=== PATIENT | female | born 2005 | race Caucasian/White ===

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

== ENCOUNTER 2024-01-01 12:44 | Outpatient (CLI) | payer MEDICAID ==
[2024-01-01 14:06] LABS: HCT - HEMATOCRIT 34.8 % (37.0-47.0); HGB - HEMOGLOBIN 11.2 g/dL (12.0-16.0); MEAN CORPUSCULAR HEMOGLOBIN 29.4 pg (27.0-31.0); MEAN CORPUSCULAR HGB CONC 32.2 g/dL (32.0-36.0); MEAN CORPUSCULAR VOLUME 91.3 fL (81.0-99.0); MEAN PLATELET VOLUME 8.9 fL (7.9-10.8); RED BLOOD COUNT 3.81 10^6/uL (4.20-5.40); RED CELL DISTRIBUTION WIDTH 13.2 % (12.0-15.0); WHITE BLOOD COUNT 9.4 x10^3/uL (4.8-10.8)
[2024-01-01 14:20] LABS: ALBUMIN/GLOBULIN RATIO 1.2 (1.0-2.2); ALKALINE PHOSPHATASE 73 IU/L (42-121); ALT ALANINE AMINOTRANSFERASE 13 IU/L (10-60); AST ASPARTATE AMINOTRANSFERASE 11 IU/L (10-42); BILIRUBIN,TOTAL 0.6 mg/dL (0.2-1.0); BUN - BLOOD UREA NITROGEN 6 mg/dL (6-20); CALCIUM 9.6 mg/dL (8.5-10.3); CARBON DIOXIDE - CO2 25 mmol/L (21-32); CHLORIDE 104 mmol/L (101-111); CREATININE 0.4 mg/dL (0.6-1.3); GFR - MDRD 206 (>89); GLUCOSE,1H PP 50GM DOSE 110 mg/dL; POTASSIUM 3.8 mmol/L (3.5-4.5); SODIUM 135 mmol/L (135-145); TOTAL PROTEIN 7.3 g/dL (6.4-8.9)
[2024-01-01 14:20] LABS: CREATININE,URINE 138.7 mg/dL; PROTEIN/CREATININE RATIO,URINE 0.1 (<=0.2)
[2024-01-02 05:14] LABS: RPR Non Reactive (Non Reactive)
== END 2024-01-01 12:45 | disposition home or self-care (01) ==
LOC: LAB 12:44
PROVIDERS: ATTEND Nurse Practitioner
DX: O99.891 Other specified diseases and conditions complicating pregnancy (principal); R51.9 Headache, unspecified
CPT/HCPCS: 36415; 80053; 82570; 82950; 84156; 85027; 86592

== ENCOUNTER 2024-01-16 16:51 | Outpatient (CLI) | payer MEDICAID ==
--- NOTE | 2024-01-18 22:25 | Ultrasound Report ---
PROCEDURE: OB Follow up INDICATIONS: MARGINAL CORD INSERTION OUTSIDE/PRIOR DATING DATA: Last menstrual period (LMP): 06/27/2023. LMP-based estimated date of delivery (SUNNY): 04/02/2024. First dating scan (date and location): 11/24/2023. Estimated date of delivery (SUNNY) from first dating scan: 04/01/2024. The below data below was generated using the clinical SUNNY of 04/02/2024 TECHNIQUE: Real-time scanning was performed of the fetus, with image documentation. Endovaginal scanning: Not performed. COMPARISON: OB ultrasound 12/05/2023 FINDINGS: General: A single living intrauterine gestation is present. Presentation: Vertex Placenta: Placental position is posterior, without previa. Placental veloz measuring 3.1 cm. Amniotic fluid index: 15.3 cm, within normal limits for gestational age. Largest pocket 5.1 cm heart rate: 153 beats per minute. Maternal cervical canal: Not well seen Estimated gestational age from initial scan: 29 weeks 0 days Marginal cord insertion 0.8 cm from the placental edge. IMPRESSION: 1. [place] living intrauterine at 29 weeks 0 days based on prior dating. 2. Normal amniotic fluid. Marginal cord insertion on the placenta. Reviewed by: Junior Villalobos MD on 01/18/2024 10:24 PM PDT Approved by: Junior Villalobos MD on 01/18/2024 10:24 PM PDT Station ID: [id number]
== END 2024-01-16 16:52 | disposition home or self-care (01) ==
LOC: DI 16:51
PROVIDERS: ATTEND Nurse Practitioner
DX: O43.123 Velamentous insertion of umbilical cord, third trimester (principal); Z3A.29 29 weeks gestation of pregnancy

== ENCOUNTER 2024-02-05 12:03 | Outpatient (CLI) | payer MEDICAID ==
[2024-02-05 12:36] VITALS: BP 121/58
--- NOTE | 2024-02-07 09:28 | PROVIDER PROGRESS NOTE ---
- HPI Chief Complaint: Decreased movement Current : Current EDU 04/02/24 Gestation 31 Weeks and 6 Days 1 Para 0 Vital Signs Temperature 36.8 C 02/05/24 12:19 Heart Rate 112 H 02/05/24 12:19 Respiratory Rate 16 02/05/24 12:19 Blood Pressure 121/58 L 02/05/24 12:19 Temperature 36.8 C 02/05/24 12:19 Heart Rate 112 H 02/05/24 12:19 Respiratory Rate 16 02/05/24 12:19 Blood Pressure 121/58 L 02/05/24 12:19 O2 Saturation If not protocol: Oxygen Flow, liters/minute - Procedures OB Procedure Performed: NST Diagnosis/Indication for NST: Decreased movement NST Procedure: NST Procedure Start Date 02/05/24 Start Time 12:11 Stop Time 12:42 Vibroacoustic Stimulation Used No Patient States Movement No - Plan Plan: Charisse is a 18yo @ 31wks gestation who presents today with concerns for decreased movement. She states she has not felt movement since early yesterday morning and that is not the normal pattern for her baby and it made her feel very concerned. On her way to the unit she reports she did begin to feel some movements that made her feel reassured but she was instructed to continue to present for evaluation regardless. She denies vaginal bleeding, leakage of fluid, or contractions. NST reactive. FHR baseline 130s, moderate variability, + accels, no decels No contractions appreciated via tocometry Patient released home with precautions. Reviewed kick counting. Return for regularly scheduled routine visit or sooner PRN. Pt verbalized understanding and agrees to above plan. She denies further questions or concerns at this time. FINAL DIAGNOSIS: Decreased movement <37wks gestation
== END 2024-02-05 13:10 | disposition home or self-care (01) ==
LOC: WFO 12:03 → FBP 12:04 → WFO 13:10
PROVIDERS: ATTEND Nurse Practitioner Obstetrics & Gynecology
DX: O36.8130 Decreased fetal movements, third trimester, not applicable or unspecified (principal); Z3A.31 31 weeks gestation of pregnancy
CPT/HCPCS: 59025

== ENCOUNTER 2024-04-08 08:11 | Inpatient (IN) ==
[2024-04-08] MEDS ORDERED: LACTATED RINGERS 1,000 ML ONE (10:10)
--- NOTE | 2024-04-08 10:33 | HISTORY & PHYSICAL EXAMINATION ---
Admit History Smoking Status: Never smoker HPI Current : Vital Signs Temperature 36.8 C 04/08/24 08:23 Pulse Rate 86 04/08/24 08:23 Respiratory Rate 17 04/08/24 08:23 Blood Pressure 136/77 H 04/08/24 08:23 Temperature 36.8 C 04/08/24 08:23 Pulse Rate 86 04/08/24 08:23 Respiratory Rate 17 04/08/24 08:23 Blood Pressure 136/77 H 04/08/24 08:23 NST Procedure NST Procedure: NST Procedure Start Time 13:55 Stop Time 14:30 Meds/Allgy Home Medications Ambulatory Orders Medication Instructions Recorded Confirmed aspirin 81 mg tablet,delayed 81 mg PO QDAY 03/02/24 04/06/24 release (Adult Low Dose Aspirin) vitamin no.2 162 mg-115.2 cap PO 03/02/24 04/06/24 mg (106 mg)-1 mg capsule Allergies Allergies Allergy/AdvReac Type Severity Reaction Status Date / Time No Known Drug Allergies Allergy Verified 04/06/24 14:45 PFSH Social History Social History Smoking Status: Never smoker Do you vape?: No Do you feel safe in your home environment?: Yes Suffered physical, verbal, emotional, or financial abuse?: No History of Abuse: No POLST Patient has POLST: No Physical Abdominal Exam Vital Signs: Temp Pulse Resp BP 36.8 C 86 17 136/77 H 04/08/24 08:23 04/08/24 08:23 04/08/24 08:23 04/08/24 08:23 Plan for Labor Plan For Labor I expect patient to be DC'd or transferred within 96 hours.: Yes Conclusion/Plan Problem List (1) 40 weeks gestation of : Plan: Admit to L&D, epidural at patient's request, admit labs, intermittent heart rate monitoring if patient desires. Jacuzzi as desired. Nitrous oxide as desired (2) Uterine contractions: Exam Exam Vital Signs: Vital Signs (72 hours) 04/08/24 08:23 Temperature 36.8 C Pulse Rate 86 Respiratory Rate 17 Blood Pressure 136/77 H Normocephalic, atraumatic Heart RRR w/o M/G/R Lungs CTAB Abdomen gravid, soft, nontender. EFW 4000g FHR baseline 140, moderate variability, + accelerations, occasional variables, no significant decelerations. Reactive NST. Category 1. Contractions palpate moderate every 3-5 minutes with soft resting tone SVE 6/90/-2, vertex, membranes intact Bilateral LE's no edema Mood is good. HPI Comments Details: HPI: This 18 yo @ 40+6 weeks by LMP (serial ultrasounds agree) presented to Labor and Delivery this morning with her cousin and sample collector. She had been aleksander throughout the night and did not get much sleep. Upon arrival her cervix was 6/90/-2, posterior and vertex by exam. Membranes intact. She desires a low intervention labor and delivery experience. She transferred to [facility] @ 19+4 weeks from [place] for the support of her extended family as her partner is away working. She intends to return to [place] at 5 weeks post- . Her has remained overall uncomplicated. By 35+3 week ultrasound, continued marginal cord insertion 7mm. ROS: No Headache, visual changes or right upper quadrant abdominal pain. Denies significant N/V. Denies urinary urgency or dysuria. All other symptoms reviewed and were negative except per HPI. In the event of an emergency, accepts the administration of blood products. Recent BP: 136/77 Labs: pending Last u/s EFW: 78%, 2957g at 35+3 weeks Total maternal weight gain: 30# Medical Hx: No significant Surgical Hx: None Social Hx: Monogamous with male partner. Denies current use of alcohol or tobacco, marijuana or other recreational drugs. Reports that she is safe in current relationship. Family Hx: Denies family history of congenital anomalies, Cystic Fibrosis or chromosomal abnormalities Allergies: NKDA Medications: LDASA, vitamin COURSE LMP: 06/27/2023 SUNNY by LMP: 04/02/2024 Initial U/S: c/w LMP 04/01/2024 FINAL SUNNY: 04/02/2024 PROBLEM: Transfer of care to @ 19+4 from [place]. No records available. Marginal Cord insertion: 5mm from superior edge of placenta on FAS. - follow up @ 35.3wks EFW 78%tile. Marginal cord insertion 7mm from placental edge. Blood type A+ Antibody Negative CBC: PLT 261 HCT 33.0 HGB 10.9 RUB: Immune VZV: Immune HBsAg Negative HepC NR RPR/AB-EIA: NR HIV: NR PAP: too young GC/CT: 11/07/2023 Negative HSV: denies Genetic testin11/24/2023 QUAD Negative Covid: Flu: FAS: 11/24/2023 Placenta: Posterior Cord: 3VC; marginal cord insertion. 5mm from superior edge of placenta. BINDU: 12.5cm EFW: 460g; 70%tile 50gm OGCT: 110 TDAP: 01/18 Breast Pump: 01/18 3rd trimester H 11.2 H 34.8 PLT 269 3rd trimester RPR NR GBS: neg ative RSV vacccine : 02/16/24 Delivery plan: MOD: Anticipate Contraception: Mirena IUD. Considering immediate pp placement vs 5wk pp placement prior to her leaving to go to [place].
[2024-04-08] MEDS ORDERED: OXYTOCIN 10 UNIT/ML VIAL IM PRN (10:35)
[2024-04-08] MEDS ORDERED: SODIUM CHLORIDE FLUSH 0.9% 10 ML SYRINGE IVP PRN (10:35)
[2024-04-08] MEDS ORDERED: fentaNYL 100 MCG/2 ML VIAL IVP PRN (10:35)
[2024-04-08] MEDS ORDERED: hydrALAZINE INJ 20 MG/ML VIAL IVP PRN (10:35)
[2024-04-08] MEDS ORDERED: LABETALOL 20 MG/4 ML SYRINGE IVP PRN ×3 (10:35)
[2024-04-08] MEDS ORDERED: TRANEXAMIC ACID IN NACL 1,000 MG/100 ML BAG IV PRN (10:35)
[2024-04-08] MEDS ORDERED: TERBUTALINE 1 MG/ML VIAL SUBQ PRN (10:35)
[2024-04-08] MEDS ORDERED: OXYTOCIN/SODIUM CHLORIDE 500 ML IV PRN (10:35)
[2024-04-08] MEDS ORDERED: miSOPROStoL 200 MCG TABLET BC PRN (10:35)
[2024-04-08] MEDS ORDERED: lidocaine 1% 20 ML MDV ID PRN (10:35)
[2024-04-08] MEDS ORDERED: NIFEdipine 10 MG CAPSULE PO PRN (10:35)
[2024-04-08] MEDS ORDERED: METHYLERGONOVINE 0.2 MG/ML VIAL IM PRN (10:35)
[2024-04-08] MEDS ORDERED: miSOPROStoL 200 MCG TABLET PR PRN (10:35)
[2024-04-08] MEDS ORDERED: LACTATED RINGERS 1,000 ML IV PRN (10:35)
[2024-04-08] MEDS ORDERED: SODIUM CHLORIDE FLUSH 0.9% 10 ML SYRINGE IVP SCH (11:00)
[2024-04-08 12:44] LABS: BASOPHILS # (AUTO) 0.1 10^3/uL (0.0-0.1); BASOPHILS % (AUTO) 0.5 %; EOSINOPHILS % (AUTO) 0.1 %; HGB - HEMOGLOBIN 11.2 g/dL (12.0-16.0); LYMPHOCYTES # (AUTO) 1.1 10^3/uL (1.5-3.5); LYMPHOCYTES % (AUTO) 10.8 %; MEAN CORPUSCULAR HEMOGLOBIN 27.2 pg (27.0-31.0); MEAN PLATELET VOLUME 9.9 fL (7.9-10.8); MONOCYTES # (AUTO) 0.5 10^3/uL (0.0-1.0); MONOCYTES % (AUTO) 4.7 %; NEUTROPHILS # (AUTO) 8.5 10^3/uL (1.5-6.6); NEUTROPHILS % (AUTO) 83.5 %; PLT - PLATELET COUNT 272 10^3/uL (130-450); RED BLOOD COUNT 4.12 10^6/uL (4.20-5.40); RED CELL DISTRIBUTION WIDTH 16.3 % (12.0-15.0); WHITE BLOOD COUNT 10.2 x10^3/uL (4.8-10.8)
[2024-04-08] MEDS ORDERED: ROPIVACAINE 0.2% 200 MG/100 ML BAG EP ONE (14:40)
[2024-04-08] MEDS ORDERED: LIDOCAINE 2%-EPI 1:100000 20 ML MDV ONE (14:40)
[2024-04-08] MEDS: LACTATED RINGERS 500 ML IV ONE (15:00)
--- NOTE | 2024-04-08 15:00 | PHARMACY PROGRESS NOTE ---
Best Possible Medication History Admit Date and Time: 04/08/24 1035 Home Medications Medication Instructions Recorded Confirmed Type aspirin 81 mg tablet,delayed 81 mg PO QDAY 03/02/24 04/08/24 History release (Adult Low Dose Aspirin) vitamin no.2 162 mg-115.2 1 cap PO DAILY 03/02/24 04/08/24 History mg (106 mg)-1 mg capsule Processed by: Pharmacy (medication reconciliation completed by mine technicianCandelaria) Medications reviewed in ED?: No Medication History completed: Yes Patient Interview: Completed Secondary Source(s): Insurance records [facility] Statement: As the person ultimately responsible for medication therapy, providers are able to order a medication from an existing home medication list in [facility] via the "Reconcile Routine" prior to Confirmation of that medication by user support specialist. Such practice is discouraged except when the physician, in their clinical judgment, deems that a medical need exists for a medication without regard to previous use.
[2024-04-08] MEDS ORDERED: NALBUPHINE 10 MG/ML AMP IVP PRN (15:28)
[2024-04-08] MEDS ORDERED: METOCLOPRAMIDE 10 MG/2 ML VIAL IVP PRN (15:28)
[2024-04-08] MEDS ORDERED: NALOXONE 0.4 MG/ML VIAL IVP PRN (15:28)
[2024-04-08] MEDS ORDERED: ROPIVACAINE 0.2% 200 MG/100 ML BAG EP PRN (15:28)
[2024-04-08] MEDS ORDERED: ePHEDrine 50 MG/ML VIAL IVP PRN (15:28)
[2024-04-08] MEDS ORDERED: ONDANSETRON 4 MG/2 ML VIAL IVP PRN ×2 (15:28→21:54)
[2024-04-08] MEDS ORDERED: diphenhydrAMINE INJ 50 MG/ML VIAL IVP PRN (15:28)
--- NOTE | 2024-04-08 15:28 | ANESTHESIA PROCEDURE NOTE ---
Pre-Anesthesia VS, & Labs Diagnosis Surgical Diagnosis:: labor pain Procedure Procedure: labor epidural Vitals Vital Signs: Temp Pulse Resp BP 36.8 C 86 17 136/77 H 04/08/24 08:23 04/08/24 08:23 04/08/24 08:23 04/08/24 08:23 NPO NPO: Other Is Patient ?: Yes Lab Results Current Lab Results: Laboratory Tests 04/08/24 08:46: WBC 10.2, RBC 4.12 L, Hgb 11.2 L, Hct 35.0 L, MCV 85.0, MCH 27.2, MCHC 32.0, RDW 16.3 H, Plt Count 272, MPV 9.9, Neut # (Auto) 8.5 H, Lymph # (Auto) 1.1 L, Gordon # (Auto) 0.5, Eos # (Auto) 0.0, Baso # (Auto) 0.1, Absolute Nucleated RBC 0.00, Nucleated RBC % 0.0 04/08/24 08:30: Blood Type A POSITIVE, Antibody Screen NEGATIVE 04/08/24 08:46 Meds/Allgy Home Medications Ambulatory Orders Medication Instructions Recorded Confirmed aspirin 81 mg tablet,delayed 81 mg PO QDAY 03/02/24 04/08/24 release (Adult Low Dose Aspirin) vitamin no.2 162 mg-115.2 1 cap PO DAILY 03/02/24 04/08/24 mg (106 mg)-1 mg capsule Allergies Allergies Allergy/AdvReac Type Severity Reaction Status Date / Time No Known Drug Allergies Allergy Verified 04/06/24 14:45 PFSH Social History Social History Smoking Status: Never smoker Do you vape?: No Do you feel safe in your home environment?: Yes Suffered physical, verbal, emotional, or financial abuse?: No History of Abuse: No POLST Patient has POLST: No Anesthesia Exam (Expanded) Exam General: Alert, Oriented x3 and Cooperative Dental: WNL Mouth Openin Fingerbreadth Neck Mobility: Normal Mallampati classification: II Plan Problem List (1) 40 weeks gestation of : Plan: Admit to L&D, epidural at patient's request, admit labs, intermittent heart rate monitoring if patient desires. Jacuzzi as desired. Nitrous oxide as desired (2) Uterine contractions: Plan Anesthesia Type: Epidural Consent for Procedure(s) Verified and Reviewed: Yes Code Status: Attempt Resuscitation ASA Classification ASA classification: 2-Mild systemic disease Is this case an emergency?: No
--- NOTE | 2024-04-08 17:05 | PROVIDER PROGRESS NOTE ---
Labor Progress Note Labor Progress Note Labor Progress Note/Additional Text: S: Comfortable with epidural. Family supportive at bedside. O: FHR 140's, Category I tracing. Contractions q 6-10 minutes SVE 7.5/80/-2, vertex. A: 18yo @ 40+6 wks gestation by LMP, serial exams agree Active labor Postdates GBS negative P: Discussed cervix unchanged from previous exam 2 hours prior. Recommended intervention and options. Patient preferred AROM vs oxytocin at this time. Moderate amount of thick meconium. Reviewed with patient, nursing team and pediatrics and bath design sales consultant OBGYN. Will plan for pediatrics at delivery Continuous monitoring Will encouraged rotation in bed on peanut ball after patient is comfortable with epidural. Plan to reevaluate in 2-3 hours for further cervical change. Will consider initiating oxytocin at that time if no further progress. Anticipate .
[2024-04-08] MEDS: OXYTOCIN/SODIUM CHLORIDE 500 ML IV SCH (18:35)
[2024-04-08] MEDS: LEVONORGESTREL 20 MCG/24H IUD IY ONE (21:32)
[2024-04-08] MEDS ORDERED: WITCH HAZEL/GLYCERIN 1 PAD TOP PRN (21:54)
[2024-04-08] MEDS ORDERED: SIMETHICONE CHEW 80 MG TABLET PO PRN (21:54)
[2024-04-08] MEDS ORDERED: CALCIUM CARBONATE CHEW 500 MG TABLET PO PRN (21:54)
--- NOTE | 2024-04-08 21:54 | DELIVERY NOTE ---
Delivery Note Labor Labor: positive Spontaneous and Augmented by oxytocin Delivery Method Infant Delivery Method: positive Spontaneous vaginal delivery Presentation Presentation: positive Vertex Nuchal Cord Nuchal Cord: positive None Amniotic Fluid Description Amniotic Fluid Description: positive Thick meconium Laceration Laceration: positive 2nd degree Suture Suture Type: positive Vicryl Suture Size: positive 3-0 Delivery Outcome Delivery Outcome: positive Livebirth [place] : positive Placed in direct skin contact with mother Cord Cord: positive 3 vessels Placenta Placenta: positive Intact Estimated Blood Loss Estimated Blood Loss (in cc): 450 Delivery Comments (Free Text/Narrative) Delivery Comments (Free Text/Narrative): Preoperative Diagnoses 40 weeks gestation Term labor Excessive weight gain in Postoperative Diagnoses Same Delivery of live rangel Status post spontaneous vaginal delivery Summary Patient presented at 40 weeks 6 days gestation with contractions. On arrival, she was sick centimeters dilated and was admitted for labor. She received an epidural. She progressed until amniotomy was performed. She had meconium stained fluid. Progression slowed, so oxytocin was started. She progressed to complete and is ready to push. Delivery Summary: Patient was placed in the dorsal lithotomy position. Upon maternal pushing the head was delivered atraumatically followed by the anterior shoulder, posterior shoulder, then the remainder of the infant's body. A female was delivered with APGARS of 8 at 1 minute and 9 at 5 minutes. The infant was placed on its mother's chest . After the cord finished pulsating, the umbilical cord was clamped times two and cut. The placenta delivered intact with three vessel cord. Placenta was not sent to pathology. Thirty units of Pitocin were added to the IV fluid and allowed to run freely. Uterine massage was performed until uterus was deemed firm. At that point, patient desired a post placental IUD. She was counseled on the risks, benefits, alternatives to an IUD, including the increased risk of expulsion when placed in the immediate period. This was discussed with her in clinic prior to delivery, as well as arrival to labor and delivery. All her questions were answered about infection, complications, infertility. We discussed effects on bleeding, expulsion, failure. Immediately following delivery of the placenta, the Mirena IUD was grasped gen tly with ring forceps, taking care not to crush them the distal part of the IUD. The fundus of the uterus was palpated manually, and the IUD was slowly inserted until the fundus was reached. The IUD was placed, and strings were trimmed above the level of the hymen. Upon inspection of the perineum, second-degree midline laceration was noted and repaired with a running suture of 3-0 Vicryl. Upon re-inspection the patient was hemostatic. Uterus again massaged and found to be firm. Needle and sponge counts were correct. Patient was stable and allowed to recover in L&D room. was stable and remained in room with mother. weight is pending at this time.
[2024-04-08] MEDS ORDERED: LACTATED RINGERS 1,000 ML IV SCH (22:00)
[2024-04-09] MEDS: IBUPROFEN 600 MG TABLET PO SCH (03:06)
[2024-04-09] MEDS: ACETAMINOPHEN 500 MG TABLET PO SCH (06:38)
--- NOTE | 2024-04-09 13:01 | PROVIDER PROGRESS NOTE ---
Subjective Prog Note Date Prog Note Date: 04/09/24 Prog Note Time: 12:54 Subjective Pt reports feeling: Improved Subjective: Subjective: Patient reports she is doing well. Comfortable WITHOUT pain management Lochia appropriate. Denies heavy bleeding. Ambulating. Pelvic and abdominal pain well-controlled. Tolerating oral intake. Diet: Regular. Voiding without difficulty. Passing flatus. Denies BM. Patient is bonding with baby in room Breast feeding going well. Denies feeling lightheaded, dizzy or excessively fatigued. Current Medications Current Medications Current Medications: Current Medications Generic Name Dose Route Start Last Admin Trade Name Freq PRN Reason Stop Dose Admin Acetaminophen 1,000 mg 04/08/24 22:00 04/09/24 06:38 Acetaminophen 500 Mg Tablet PO Not Given Q8HR HAY Calcium Carbonate/Glycine 500 mg 04/08/24 21:54 Calcium Carbonate Chew 500 Mg Tablet PO TID PRN Heartburn Diphenhydramine HCl 12.5 - 25 mg 04/08/24 15:28 Diphenhydramine Inj 50 Mg/Ml Vial IVP Q6HR PRN ITCHING Ephedrine Sulfate 5 mg 04/08/24 15:28 Ephedrine 50 Mg/Ml Vial IVP Q5M PRN For SBP<100;give until SBP>100 Fentanyl 50 mcg 04/08/24 10:35 Fentanyl 100 Mcg/2 Ml Vial IVP Q1H PRN Severe Pain (score 7-10) Hydralazine HCl 5 - 10 mg 04/08/24 10:35 Hydralazine Inj 20 Mg/Ml Vial IVP Q20M PRN SBP> or= 160 OR DBP> or= 110 Protocol Lactated Ringer's 500 mls @ 999 mls/hr 04/08/24 10:35 Lr IV PRN PRN PER PHYSICIAN ORDER Oxytocin/Sodium Chloride 500 mls @ 999 mls/hr 04/08/24 10:35 Pitocin/Sodium Chloride IV PRN PRN POST- HEMORR PREVENTION Protocol 999 MILLIUNIT/MIN Tranexamic Acid 1,000 mg in 100 mls @ 600 mls/hr 04/08/24 10:35 Tranexamic 1,000 Mg/100ml-Nacl IV Q30M PRN EBL >1200mL and within 3hr Ropivacaine 200 mg in 100 mls @ 0 mls/hr 04/08/24 15:28 Naropin 0.2% EP PRN PRN PAIN Protocol Per Protocol Oxytocin/Sodium Chloride 500 mls @ 2 mls/hr 04/08/24 19:00 04/09/24 02:12 Pitocin/Sodium Chloride IV Infused TITR HAY Titration Protocol 2 MILLIUNIT/MIN Lactated Ringer's 1,000 mls @ 100 mls/hr 04/08/24 22:00 Lr IV .Q10H HAY Ibuprofen 600 mg 04/09/24 00:00 04/09/24 03:06 Ibuprofen 600 Mg Tablet PO 600 mg Q6HR HAY Administration Labetalol HCl 20 - 80 mg 04/08/24 10:35 Labetalol 20 Mg/4 Ml Syringe IVP Q10M PRN SBP> or= 160 OR DBP> or= 110 Protocol Labetalol HCl 20 mg 04/08/24 10:35 Labetalol 20 Mg/4 Ml Syringe IVP .ONCE PRN SBP> or= 160 OR DBP> or= 110 Protocol Labetalol HCl 20 - 40 mg 04/08/24 10:35 Labetalol 20 Mg/4 Ml Syringe IVP Q10M PRN SBP> or= 160 OR DBP> or= 110 Protocol Lidocaine HCl 20 ml 04/08/24 10:35 Lidocaine 1% 20 Ml Mdv ID 04/11/24 10:35 .ONCE PRN PERINEAL REPAIR Methylergonovine Maleate 0.2 mg 04/08/24 10:35 Methylergonovine 0.2 Mg/Ml Vial IM .ONCE PRN Hemorrhage Metoclopramide HCl 10 mg 04/08/24 15:28 Metoclopramide 10 Mg/2 Ml Vial IVP Q6HR PRN Nausea / Vomiting Misoprostol 600 mcg 04/08/24 10:35 Misoprostol 200 Mcg Tablet BC .ONCE PRN Hemorrhage Misoprostol 800 mcg 04/08/24 10:35 Misoprost[address] .ONCE PRN Hemorrhage Nalbuphine HCl 2.5 - 5 mg 04/08/24 15:28 Nalbuphine 10 Mg/Ml Amp IVP Q4H PRN ITCHING Naloxone HCl 0.1 mg 04/08/24 15:28 Naloxone 0.4 Mg/Ml Vial IVP Q2M PRN RR<8 Nifedipine 10 - 20 mg 04/08/24 10:35 Nifedipine 10 Mg Capsule PO Q20M PRN SBP> or= 160 OR DBP> or= 110 Protocol Ondansetron HCl 4 mg 04/08/24 15:28 Ondansetron 4 Mg/2 Ml Vial IVP Q6HR PRN Nausea / Vomiting Ondansetron HCl 4 mg 04/08/24 21:54 Ondansetron 4 Mg/2 Ml Vial IVP Q4HR PRN Nausea / Vomiting Oxytocin 10 unit 04/08/24 10:35 Oxytocin 10 Unit/Ml Vial IM .ONCE PRN Step One if no IV access. Simethicone 80 mg 04/08/24 21:54 Simethicone Chew 80 Mg Tablet PO TID PRN Gas Sodium Chloride 10 ml 04/08/24 10:35 Sodium Chloride Flush 0.9% 10 Ml Syringe IVP PRN PRN NEEDED PER PROVIDER ORDERS Sodium Chloride 10 ml 04/08/24 11:00 Sodium Chloride Flush 0.9% 10 Ml Syringe IVP Q8H HAY Terbutaline Sulfate 0.25 mg 04/08/24 10:35 Terbutaline 1 Mg/Ml Vial SUBQ .ONCE PRN Tachystole Witch Dominga/Glycerin 1 pad 04/08/24 21:54 Witch Dominga/Glycerin 1 Pad TOP PRN PRN ITCHING Objective Vital Signs/Intake & Output Reviewed Vital Signs: Yes Vital Signs: Vital Signs x48h Temp Pulse Resp BP 04/09/24 11:05 36.7 C 76 18 132/55 H Intake & Output: Intake & Output 04/07/24 04/08/24 04/09/24 04/10/24 05:59 05:59 05:59 05:59 Intake Total 1000 / 1000 Output Total 1000 / 1000 Balance 0 / 0 Weight (kg) 215 lb Objective General Appearance: positive No acute distress Respiratory: positive No respiratory distress Lab Results 04/08/24 08:46 Other Labs: Lab Results x24hrs 04/08/24 Range/Units 08:30 Blood Type A POSITIVE Antibody Screen NEGATIVE Other Results/Comments Other Results/Comments: Abdomen: Uterus firm. Below umbilicus. No guarding or rebound tenderness. Extremities: No pain on palpation. Distal pulses intact. ABX Reporting Has patient been on IV antibiotics over the past 48 hours?: No Assessment/Plan Problem List (1) care and examination of lactating mother: Impression: day 1. 18yo s/p on 04/08/2024 following natural onset of labor at 40+6 weeks. Doing well. - Routine care - Anticipate discharge tomorrow
[2024-04-09 21:16] VITALS: O2SAT 99
--- NOTE | 2024-04-10 11:06 | Discharge Summary ---
Discharge Summary HOSPITAL COURSE Hospital Course: Date of Admission: 04/08/2024 Date of Discharge: 04/10/2024 Diagnosis on Admission: 1. 18yo @ 40.6wks gestation 2. Active labor 3. GBS negative 4. FHR Category I Diagnosis on Discharge: 1. 18yo PPD#2 s/p TSVD viable female infant 2. 3. Normal recovery Brief History: She is a patient of [facility] who presented on 04/08/2024 in active labor. Cervix was 6/90/-2 and vertex with intact membranes. Epidural was placed per maternal request. AROM occurred for augmentation of labor and was noted to be a moderate amount of meconium stained fluid. She spontaneously progressed to deliver a viable female on 04/08/2024. Perineum was noted to have a 2nd degree laceration which was repaired in standard fashion and under sterile conditions. Apgars were 8/9 at 1 and 5 minutes respectively. EBL 450 mL. She has been doing well in her course. She is ambulating and tolerating a regular diet. She is urinating without difficulty and her lochia is normal. Her pain is well controlled with oral medications. She will be discharged home today on day #2 with instructions to continue taking her vitamin while and to continue taking Ibuprofen and Tylenol over the counter as needed for pain management. She intends to follow up with myself at [facility] in 1 week for routine visit or sooner if needed. She has been given precautions to call if she has any worsening fevers, chills, abdominal pain, increased vaginal bleeding or foul smelling vaginal lochia. Physical Exam: Normocephalic, atraumatic. Heart RRR w/o M/G/R, lungs CTAB, abdomen soft and nontender with fundus firm at U-2, perineum intact, light lochia rubra, bilateral LE's no edema. Mood is good. ALLERGIES Allergies Allergy/AdvReac Type Severity Reaction Status Date / Time No Known Drug Allergies Allergy Verified 04/06/24 14:45 MEDICATIONS Ambulatory Orders Medication Instructions Recorded Confirmed vitamin no.2 162 mg-115.2 1 cap PO DAILY 03/02/24 04/08/24 mg (106 mg)-1 mg capsule LABS 04/08/24 08:46 Discharge Plan Discharge Patient Disposition: 01 Home, Self Care Prescriptions: Continued vitamin no.2 162-115.2-1 mg capsule 1 cap PO DAILY Discontinued aspirin [Adult Low Dose Aspirin] 81 mg tablet,delayed release (DR/EC) 81 mg PO QDAY Print Language: Faroese Patient Instructions: Vaginal After Follow-up Care: Hailey Brown ARNP [Provider Admit Priv/Credential] -
--- NOTE | 2024-04-10 12:49 | Labor Flowsheet ---
Labor Flowsheet Datetime Report Generated by CPN: 04/10/2024 12:48 Datetime: 04/10/2024 12:19 VITAL SIGNS NBP Sys/Suzanne/Mean (mmHg): 128 : 67 : 78 Pulse: 83 LaborFlag: Labor Datetime: 04/08/2024 21:00 UTERINE ACTIVITY Monitor Mode: External Frequency (min): 2 Duration (sec): 40-60 Pattern: Normal: <= 5 Contractions in 10 Minutes ASSESSMENT A Monitor Mode: External US FHR Baseline Rate : 150 Variability: Moderate 6-25 bpm Decelerations: Variable Category: Category II PATIENT CARE Oxygen Method: Room Air Pushing Position: Pushing with Contractions Pushing Progress: Descent with Pushing; Pushing Effectively with Contractions Datetime: 04/08/2024 20:45 Quality: Strong Resting Tone (Palpate): Relaxed Comments: RN continuously ay bedside monitoring fhr and ctx Datetime: 04/08/2024 20:41 Communication Comments: Dr. Tony and RT at bedside Datetime: 04/08/2024 20:30 Accelerations: 15X15 Stage 2 Comments: RN at bedside continuously assessing FHR and ctx Datetime: 04/08/2024 20:23 STAGE 2 Pushing: Coached on Pushing Preparation for Delivery: Setup for Delivery Datetime: 04/08/2024 20:21 I/O Interventions: Jeong Discontinued Datetime: 04/08/2024 20:19 VAGINAL EXAM Dilatation (cm): 10.0 Effacement (%): 100 Exam by: C. Maria T CNM Datetime: 04/08/2024 19:58 Membranes Ruptured Date/Time: 04/08/2024 16:35 Datetime: 04/08/2024 19:49 MEDICATIONS Pitocin (milliunits): Increased to @ 6 Datetime: 04/08/2024 19:45 Pitocin Checklist: At Least 1 Acceleration of 15 bpm x 15 Seconds in 30 Minutes or Adequate Variabi lity; No More than 1 Late Deceleration Occurred in Past 30 Minutes; No More than 2 Variable Decelerat ions > 60 Seconds in Duration and decreasing >60 bpm in 30 minutes; No More than 5 Uterine Contractio ns in 10 Minutes for any 20 Minute Interval; Uterus Palpates Soft between Contractions Pain Relief Measures: Comfort Measures Pain Coping: Talking Through Contractions MATERNAL ASSESSMENT Level of Consciousness: Alert DTR's/Clonus: DTRs 2+; No Clonus Headache: Denies Breath Sounds, Left: Clear and Equal Breath Sounds, Right: Clear and Equal Nausea/Vomiting: Denies RUQ Epigastric Pain: Denies Patient Care Comments: right lateral with peanut ball Datetime: 04/08/2024 19:03 Monitor Interventions for UA: Marquez Adjusted Datetime: 04/08/2024 18:58 Patient Position/Activity: Right Lateral Datetime: 04/08/2024 18:30 FHR Baseline Changes: No Baseline Change Datetime: 04/08/2024 18:11 Temperature (C): 36.9 Datetime: 04/08/2024 17:34 SpO2 (%): 99 Datetime: 04/08/2024 17:30 COMMUNICATION Communication: Provider at Bedside Datetime: 04/08/2024 16:35 Station: -2 Membranes Rupture Method: Artificial Amniotic Fluid Color: Heavy Meconium Amniotic Fluid Amount: Moderate Amniotic Fluid Odor: None Datetime: 04/08/2024 15:18 Pain Presence: None/Denies Datetime: 04/08/2024 15:05 Epidural Procedure: Test Dose Datetime: 04/08/2024 14:52 ANESTHESIA Anesthesia Plans: Local Datetime: 04/08/2024 14:43 Anesthesia Comments: [employer] SUPERVISOR at bedside, consent discussed Datetime: 04/08/2024 14:40 Epidural Positioning: Sitting Datetime: 04/08/2024 13:04 Monitor Interventions for FHR: Ultrasound Adjusted Datetime: 04/08/2024 10:05 PAIN Pain Scale: 10 Pain Goal: 5 Pain Assessment Comments: Pt. states she does not want anything for pain at this time. Jose Ramon cont. t o monitor. Datetime: 04/08/2024 08:22 Stage of : Labor
== END 2024-04-10 12:30 | disposition home or self-care (01) | DRG 807 ==
LOC: WFO 08:11 → FBP 08:13
PROVIDERS: ADMIT Obstetrics & Gynecology; ATTEND Obstetrics & Gynecology
DX: Z3A.40 40 weeks gestation of pregnancy; O70.1 Second degree perineal laceration during delivery; O77.0 Labor and delivery complicated by meconium in amniotic fluid; Z37.0 Single live birth